=== PATIENT | female | born 1970 | race Caucasian/White ===

== ENCOUNTER 2016-05-26 16:51 | Emergency (ER) | payer OTHER ==
[~2016-05-26] VITALS: Ht 162.6 cm; Wt 90.7 kg
[~2016-05-26 16:51] MED LIST: CELEXA20 MG PO; DIFLUCAN200 MG PO; LAMICTAL100 MG PO; LOPERAMIDE 2 MG2 M1 PO; PREDNISONE 5 MG5 MG PO; TESSALON PERLE100 MG PO; TRAZODONE 150150 M1 PO
[2016-05-26 17:02] LABS: URINE BLOOD NEGATIVE (Negative); URINE COLOR YELLOW; URINE GLUCOSE-RANDOM* NEGATIVE (Negative); URINE KETONES TRACE (Negative); URINE NITRITE NEGATIVE (Negative); URINE PROTEIN (DIPSTICK) TRACE (Negative); URINE SPECIFIC GRAVITY >= 1.030 (1.003-1.035); URINE UROBILINOGEN 0.2 E.U./dl (0.2-1.0)
[2016-05-26 17:03] LABS: ICTOTEST (BILI CONFIRMATORY) Negative (Negative); URINE BILIRUBIN NEGATIVE (Negative)
[2016-05-26] MEDS ORDERED: TOPAMAX 25 MG T25 M1 PO (17:06)
[2016-05-26] MEDS ORDERED: OMEPRAZOLE 20 M20 M1 PO (17:07)
[2016-05-26] MEDS ORDERED: METFORMIN HCL500 MG PO (17:07)
[2016-05-26] MEDS ORDERED: CHOLESTYRAMINE P4 GM PO (17:08)
[2016-05-26] MEDS ORDERED: VICTOZA0.6 MG/0.1 SUBQ (17:09)
[2016-05-26 17:12] LABS: HEMATOCRIT 44.2 % (37.0-47.0); HEMOGLOBIN 15.3 gm/dL (12.0-15.0); MCH 31.9 pg (26.0-34.0); MCHC 34.5 % (28.0-37.0); MCV 92.4 fL (80.0-100.0); RBC 4.78 mil/uL (4.20-5.00); RDW 14.1 % (10.5-14.5); WBC 8.8 thou/uL (4.0-11.0)
[2016-05-26 17:22] LABS: CALCIUM 9.3 mg/dL (8.5-10.1); CREATININE 1.1 mg/dL (0.6-1.3); POTASSIUM 3.6 mmol/L (3.5-5.1)
[2016-05-26 17:28] LABS: ALBUMIN 4.3 g/dL (3.4-5.0); TOTAL BILIRUBIN 0.6 mg/dL (<0.1-1.0); TOTAL PROTEIN 7.8 g/dL (6.4-8.2)
[2016-05-26] MEDS ORDERED: LEVSIN0.125 MG PO (18:20)
[2016-05-26] MEDS ORDERED: PHENERGAN 25 MG25 MG PO (18:20)
[2016-05-26 18:32] VITALS: BP 115/70
== END 2016-05-26 18:33 | disposition home or self-care (01) ==
LOC: ER 16:51
PROVIDERS: Physician Assistant
DX: R10.9 Unspecified abdominal pain (principal); R11.2 Nausea with vomiting, unspecified; K21.9 Gastro-esophageal reflux disease without esophagitis; E11.9 Type 2 diabetes mellitus without complications; Z90.710 Acquired absence of both cervix and uterus; Z90.89 Acquired absence of other organs; Z88.0 Allergy status to penicillin; Z88.1 Allergy status to other antibiotic agents; Z88.5 Allergy status to narcotic agent; Z88.6 Allergy status to analgesic agent